=== PATIENT | male | born 1990 | race Caucasian/White ===

== ENCOUNTER 2019-11-01 09:51 | Outpatient (RCR) | payer SELFPAY | END 2019-11-29 00:01 | LOC: WOUND 09:51 | PROVIDERS: Family Provider Family Medicine; Visit Provider Thoracic Surgery (Cardiothoracic Vascular Surgery) | DX: L97.512 Non-pressure chronic ulcer of other part of right foot with fat layer exposed (principal) | CPT/HCPCS: 11042 ==

== ENCOUNTER 2020-01-20 08:26 | Day surgery (SDC) | payer MEDICAID, SELFPAY ==
[2020-01-19 13:37] VITALS: BMI 38.3
[2020-01-20] VITALS (16 sets, daily range): BP systolic 115–151; BP diastolic 66–98; PULSE 60–98; RESP 8–18; TEMP 36.2–37.1; O2SAT 92–100
--- NOTE | 2020-01-20 | SCC_ITS ---
Procedure Done: Primary arthrodesis right Lisfranc injury with arthrodesis of first and second tarsometatarsal joints. 7 seconds of fluoroscopic guidance, for a cumulative dose of 0.11 mGy, was provided to Dr. Raymundo by the radiology department. C-arm images of the RIGHT foot were saved for the patient's permanent record. [facility]
[2020-01-20] MEDS: sodium chloride 0.9% 1,000 ML 30 ML IV (09:21)
[2020-01-20] MEDS: midazolam 1 mg/mL INJ 2 mL 2 MG IVP (09:25)
--- NOTE | 2020-01-20 09:28 | ANES.PREANE2 ---
Pre-Anesthetic Assessment Pre-Anesthetic Assessment: Height/Weight: Height 1.8 m Weight 124.738 kg Temp Pulse Resp BP Pulse Ox 98.7 F 77 18 135/92 97 01/20/20 08:55 01/20/20 08:55 01/20/20 08:55 01/20/20 08:55 01/20/20 08:55 Preop Diagnosis: Right Lisfranc dislocation Proposed Procedure: Operation Date: 01/20/20 10:00 Proposed Procedures p Right tarsometeatarsal Arthrodesis Foot 51802 76651 S93.326a S92.354A S92.334A S92.424A(Right) - JENNIFER Fofana Bijan Osteotomy(Right) - JENNIFER Fofana Gastrocnemius Recession(Right) - Wei Raymundo DPM Familial anesthetic complications: None Was Beta Jose taken within 24 hours: N/A Last intake: Intake Last Liquid Date 01/19/20 Last Liquid Time 23:30 Last Solid Date 01/19/20 Last Solid Time 19:00 Social: Social History: No alcohol and No tobacco Exam: Pre-Anes Outpt Exam: alert, oriented x 3, clear to auscultation bilaterally and regular rate & rhythm Airway: Cervical ROM: WNL MP: 2 Additional comments: large tongue, 4 chipped teeth in front, grove Pulmonary: Pulmonary: None reported CV/HEM: CV/HEM: None reported : : None reported Hepatic: Hepatic: None reported GI: GI: None reported Metabolic: Metabolic: None reported Musc/skel: Comments: R foot with scar and contracted Neuropsych: Neuropsych: None reported Comments: 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 Anesthetic Plan: ASA status: 1 Anesthesia: General and Regional (specify below) (popliteal) Meds/Allergies Current Medications: Current Medications Generic Name Dose Route Start Last Admin Trade Name Freq PRN Reason Stop Dose Admin Sodium Chloride 1,000 mls @ 30 ml s/hr 01/20/20 09:00 01/20/20 09:21 Sodium Chloride 0.9% IV 01/21/20 08:59 30 mls/hr .Q24H SYLVIE Administration PFSH Anesthesia PFSH: Social History Smoking and tobacco status: former smoker Alcohol intake: current Alcohol intake frequency: holidays/special occasions only Current occupational status: unemployed Data Anesthesia Cardiac Studies: No Data to Display
--- NOTE | 2020-01-20 10:45 | ANES.PROC ---
Anesthesia Procedures Procedure/Date: 01/20/20 Nerve Block ^: Nerve Block 1: Main Anesthesia: general anesthesia Time Out Performed: Yes Consent: requested by attending/covering physician, from patient, risks and benefits reviewed and patient agrees to proceed Nerve block location: popliteal (R) Anesthesia monitors applied: pulse oximetry, BP cuff and oxygen Nerve block position: supine Anesthetic Used: ropivicaine 0.5% (30 ml) and with decadron (2) Ultrasound used to: recognize landmarks Interscalene/Femoral BLK: 4 stimuplex 21 g needle used for position and inplane approach, visualize local anesthetic spread and no vascular puncture identified Injection: neg aspiration of heme Patient Tolerated Procedure: well Complications: none
--- NOTE | 2020-01-20 11:17 | P.HPUD_ITS ---
Surgery/Procedure H&P Update DATE OF PROCEDURE: January 20, 2020 DATE H&P PERFORMED: 12/28/19 H&P UPDATE INFORMATION: I have reviewed H&P completed within last 30 days, I have examined patient prior to procedure, No changes to prior documentation and H&P is in [facility] EMR on date indicated PREOP DIAGNOSIS: Right Lisfranc dislocation PLANNED PROCEDURE: Operation Date: 01/20/20 10:00 Proposed Procedures p Right tarsometeatarsal Arthrodesis Foot 51456 40329 S93.326a S92.354A S92.334A S92.424A(Right) - JENNIFER Fofana Bijan Osteotomy(Right) - JENNIFER Fofana Gastrocnemius Recession(Right) - Wei Raymundo DPM
--- NOTE | 2020-01-20 14:21 | SUR.PHASEI ---
1415 PATIENT TO PACU. RR EVEN AND UNLABORED. PLACED ON SIMPLE MASK AT 8L, SPO2 96%. DRESSING DRY AND INTACT TO RIGHT FOOT. CAP REFILL LESS THAN 3 SECONDS. PATIENT NOTED TO BE SLEEPING.
--- NOTE | 2020-01-20 14:22 | XR_ITS ---
WS: [id number] XR foot RT min 3V* [id number] REASON FOR EXAM: post op FINDINGS: Postop changes are noted with a plate across the fifth metatarsal postop changes are also s een with fusion of Lisfranc's joint with sheila across the joint and a screw through the first metat arsal cuneiform articulation. Sheila are seen in the soft tissue. XR/XR foot RT min 3V* [id number] IMPRESSION: Correction of Lisfranc joint with sheila and a screw There is previous plate through the proximal fifth metatarsal.
[2020-01-20] MEDS: fentaNYL 50 mcg/mL INJ 2mL IVP (14:40)
--- NOTE | 2020-01-20 15:07 | SUR.PHASEI ---
1505 PATIENT TO OPS AT THIS TIME. RR EVEN AND UNLABORED. DRESSING INTACT TO RIGHT FOOT.
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
== END 2020-01-20 17:02 | disposition home or self-care (01) ==
PROVIDERS: Family Provider Family Medicine; PCP Electrodiagnostic Medicine; Visit Provider Podiatrist Foot & Ankle Surgery
PROC: (CPT 28740; principal; 2020-01-20 10:00)
PROC: (CPT 28298; 2020-01-20 10:00)
DX: S93.324A Dislocation of tarsometatarsal joint of right foot, initial encounter (principal); S97.81XA Crushing injury of right foot, initial encounter; Z87.891 Personal history of nicotine dependence
CPT/HCPCS: 28730; 12345; 73630; 76000; 96374; C1713; C9290; J0131; J0690; J1100; J2001; J2250; J2405; J2704; J2765; J2795; J3010; J3490; J7030

== ENCOUNTER → 2020-02-03 12:47 | Outpatient (BNVA) | payer MEDICAID, SELFPAY | PROVIDERS: Family Provider Family Medicine; PCP Electrodiagnostic Medicine; Visit Provider Podiatrist Foot & Ankle Surgery | DX: Z48.89 Encounter for other specified surgical aftercare (principal); M24.674 Ankylosis, right foot | CPT/HCPCS: 73630 ==

== ENCOUNTER → 2020-02-09 14:27 | Outpatient (BNVA) | payer MEDICAID, SELFPAY | PROVIDERS: Family Provider Family Medicine; PCP Electrodiagnostic Medicine; Visit Provider Podiatrist Foot & Ankle Surgery | DX: Z48.89 Encounter for other specified surgical aftercare (principal); Q70.21 Fused toes, right foot | CPT/HCPCS: 73630 ==

== ENCOUNTER → 2020-03-01 13:28 | Outpatient (BNVA) | payer MEDICAID, SELFPAY | PROVIDERS: Family Provider Family Medicine; PCP Electrodiagnostic Medicine; Visit Provider Podiatrist Foot & Ankle Surgery | DX: Z48.89 Encounter for other specified surgical aftercare (principal); M85.871 Other specified disorders of bone density and structure, right ankle and foot; R60.9 Edema, unspecified | CPT/HCPCS: 73630 ==

== ENCOUNTER → 2020-03-29 11:16 | Outpatient (BNVA) | payer MEDICAID, SELFPAY | PROVIDERS: Family Provider Family Medicine; PCP Electrodiagnostic Medicine; Visit Provider Podiatrist Foot & Ankle Surgery | DX: Z98.890 Other specified postprocedural states (principal) | CPT/HCPCS: 73610; 73620 ==

== ENCOUNTER → 2020-05-17 14:57 | Outpatient (BNVA) | payer MEDICAID, SELFPAY | PROVIDERS: Family Provider Family Medicine; PCP Electrodiagnostic Medicine; Visit Provider Podiatrist Foot & Ankle Surgery | DX: S92.354D Nondisplaced fracture of fifth metatarsal bone, right foot, subsequent encounter for fracture with routine healing (principal); V29.40XD Motorcycle driver injured in collision with unspecified motor vehicles in traffic accident, subsequent encounter; Z98.890 Other specified postprocedural states | CPT/HCPCS: 73630 ==

== ENCOUNTER 2020-05-22 20:00 | Outpatient (CLI) | payer MEDICAID, SELFPAY | END 2020-05-22 20:01 | disposition home or self-care (01) | LOC: SLEEP 05-23 08:31 | PROVIDERS: Family Provider Family Medicine; PCP Electrodiagnostic Medicine; Visit Provider Anesthesiology Pain Medicine | DX: G47.10 Hypersomnia, unspecified (principal) | CPT/HCPCS: 95810 ==

== ENCOUNTER → 2020-07-16 14:53 | Outpatient (BNVA) | payer MEDICAID, SELFPAY | PROVIDERS: Family Provider Family Medicine; PCP Electrodiagnostic Medicine; Visit Provider Podiatrist Foot & Ankle Surgery | DX: S92.354D Nondisplaced fracture of fifth metatarsal bone, right foot, subsequent encounter for fracture with routine healing (principal); X58.XXXD Exposure to other specified factors, subsequent encounter | CPT/HCPCS: 73630 ==

== ENCOUNTER 2020-07-25 20:00 | Outpatient (CLI) | payer MEDICAID, SELFPAY | END 2020-07-25 20:01 | disposition home or self-care (01) | LOC: SLEEP 07-26 08:45 | PROVIDERS: Family Provider Family Medicine; PCP Electrodiagnostic Medicine; Visit Provider Anesthesiology Pain Medicine | DX: G47.33 Obstructive sleep apnea (adult) (pediatric) (principal) | CPT/HCPCS: 95811 ==

== ENCOUNTER → 2020-10-16 13:36 | Outpatient (BNVA) | payer MEDICAID, SELFPAY | PROVIDERS: Family Provider Family Medicine; PCP Electrodiagnostic Medicine; Visit Provider Podiatrist Foot & Ankle Surgery | DX: Z47.89 Encounter for other orthopedic aftercare (principal); S92.354D Nondisplaced fracture of fifth metatarsal bone, right foot, subsequent encounter for fracture with routine healing; S93.324D Dislocation of tarsometatarsal joint of right foot, subsequent encounter; S92.344D Nondisplaced fracture of fourth metatarsal bone, right foot, subsequent encounter for fracture with routine healing; S92.334D Nondisplaced fracture of third metatarsal bone, right foot, subsequent encounter for fracture with routine healing; S92.424D Nondisplaced fracture of distal phalanx of right great toe, subsequent encounter for fracture with routine healing; M25.371 Other instability, right ankle | CPT/HCPCS: 73630 ==

== ENCOUNTER → 2022-12-23 15:21 | Outpatient (BNVA) | payer MEDICAID, SELFPAY | PROVIDERS: Family Provider Family Medicine; PCP Electrodiagnostic Medicine; Visit Provider Podiatrist Foot & Ankle Surgery | DX: S93.324D Dislocation of tarsometatarsal joint of right foot, subsequent encounter (principal); S92.354D Nondisplaced fracture of fifth metatarsal bone, right foot, subsequent encounter for fracture with routine healing; V29.99XA Rider (driver) (passenger) of other motorcycle injured in unspecified traffic accident, initial encounter; M25.371 Other instability, right ankle; M79.2 Neuralgia and neuritis, unspecified; M77.41 Metatarsalgia, right foot; M20.41 Other hammer toe(s) (acquired), right foot | CPT/HCPCS: 73630; 99214 ==

== ENCOUNTER 2023-05-24 11:51 | Emergency (ER) | payer MEDICAID, SELFPAY ==
[2023-05-24 12:18] VITALS: BP 131/93; PULSE 93; RESP 17; TEMP 36.7; O2SAT 97
--- NOTE | 2023-05-24 12:33 | ED_ITS ---
HPI - Dental/Oral General: Chief complaint: Dental/Oral Stated complaint: Dental Pain Time Seen by Provider: 05/24/23 12:33 History of Present Illness: Mr. Bradford is a 32-year-old gentleman without significant past medical history presenting to the emergency department for concern over facial swelling and pain. He noticed symptoms approximately 5 days ago initially with mild disc omfort. Subsequently seen 05/22 at outside clinic and started on amoxicillin for suspected dental infection however despite this symptoms have continued to worsen. Notes associated fevers and chills as well as nausea and vomiting. Intensity of symptoms is moderate. Worse with range of motion and palpation. No other specific changes in health, exacerbating, or alleviating factors identified. Onset (ago): day(s) Duration: worsening Severity: moderate Exacerbating factors: chewing Associated symptoms: Reports fever(s); Denies ear or mastoid pain or tongue swelling Review of Systems General: Reports: 10 or more systems reviewed and unremarkable except in HPI and below Const: Reports: fever(s) ENMT: Denies: ear or mastoid pain All/Imm: Denies: tongue swelling PFSH ED PFSH: Medical History (Updated 06/01/23 @ 00:01 by MANJIT Konx) Abrasion of ankle Closed nondisplaced fracture of distal phalanx of right great toe Closed nondisplaced fracture of third metatarsal bone of right foot Non-pressure chronic ulcer of other part of right foot with unspecified severity Traumatic hematoma of left ankle Surgical History History of back surgery Hx of elbow surgery Family History Other Diabetes Hypertension Denies family history of CAD (coronary artery disease) Clotting disorder Dementia Hyperlipidemia Psychiatric illness Chronic kidney disease (CKD) Suicide Anesthesia complication Bleeding disorder Family history of premature coronary artery disease Lung disease Cancer Stroke Social History Smoking and tobacco status: former smoker Alcohol intake: current Alcohol intake frequency: holidays/special occasions only Substance/Drug Use: never Current occupational status: unemployed Physical Exam Const: COMMON NORMALS: alert GENERAL APPEARANCE: cooperative and well developed HENMT: COMMON NORMALS: normocephalic and atraumatic HEAD & SCALP: normocephalic and atraumatic THROAT: posterior oropharynx normal OTHER: Prominent swelling of the left lateral mandible without extension to the TMJ region. No obvious abscess head in the buccal surface. Mandibular dentition appears intact, poor dentition in the left maxillary region. Tender to palpation with warmth overall. No obvious drainable fluid collection. TM normal. No evidence of mastoiditis. No distortion of posterior pharyngeal anatomy or structures. Eye: COMMON NORMALS: conjunctivae normal CONJUNCTIVA: Yes conjunctivae normal SCLERA: sclerae normal Neck/C-Spine: COMMON NORMALS: supple GENERAL: Yes trachea midline Resp: COMMON NORMALS: normal respiratory effort EFFORT & INSPECTION: Yes able to speak in complete sentences Cardio: COMMON NORMALS: regular rate and regular rhythm RATE: regular rate RHYTHM: regular rhythm GI: COMMON NORMALS: Soft to palpation PALPATION: Yes Soft to palpation and No Tenderness to palpation present (GI) Extremity: GENERAL: Yes normal exam except as noted and No edema Neuro: COMMON NORMALS: moves all extremities SENSORIUM/ORIENTATION: Yes alert and No Orientation impaired Psych: COMMON NORMALS: mental status grossly normal and Normal thought process present THOUGHT PROCESS: Normal thought process present Course Vital Signs: Vital signs: Vital Signs Temperature 98.1 F 05/24/23 12:18 Pulse Rate 83 05/24/23 15:03 Respiratory Rate 18 05/24/23 15:03 Blood Pressure 129/94 05/24/23 15:03 Pulse Oximetry 94 05/24/23 15:03 Oxygen Delivery Me thod Room Air 05/24/23 12:18 MDM - Dental/Oral Medical Decision Making 32-year-old gentleman presenting with facial swelling in the context of diagnosed dental infection. Exam as above. Given worsening despite outpatient antibiotics further evaluation is appropriate. Labs with minimal leukocytosis though hemoconcentration is also present. Normal metabolic panel. CT with cellulitis related to dental infection. No abscess or deep spread. Patient treated with antiemetic, analgesia and improved. Antibiotic dose given with clindamycin. Plan to change outpatient antibiotic. The results of ED evaluation were discussed with the patient including prescriptions and/or symptomatic cares (if applicable) including appropriate and responsible use, followup plan, and return precautions. The patient verbalized understanding and felt safe for discharge. Medical Records I reviewed the patient's medical records. Lab Data I reviewed the patient's lab results. 05/24/23 12:52 05/24/23 12:[address] 05/24/23 12:42 IMPRESSION: Findings as stated above are consistent with osteomyelitis surrounding the roots of the bilateral lateral incisors and left anterior/posterior premolar teeth extending to the cortical surfaces with overlying soft tissue cellulitis. No discernible abscess formation is seen. Laboratory Results WBC 11.3 10^3/uL (4.0-10.0) H 05/24/23 12:52 RBC 6.28 10^6/uL (4.1-5.3) H 05/24/23 12:52 Hgb 17.1 g/dL (11.7-16.6) H 05/24/23 12:52 Hct 53.2 % (42.0-52.0) H 05/24/23 12:52 MCV 84.7 fl (80-94) 05/24/23 12:52 MCH 27.2 pg (28.0-34.0) L 05/24/23 12:52 MCHC 32.1 g/dL (30.0-36.0) 05/24/23 12:52 RDW 13.8 % (12.1-15.1) 05/24/23 12:52 Plt Count 335 10^3/cmm (130-400) 05/24/23 12:52 MPV 9.2 fL (7.4-10.4) 05/24/23 12:52 Neut % (Auto) 67.9 % 05/24/23 12:52 Lymph % (Auto) 21.7 % 05/24/23 12:52 [place] % (Auto) 9.0 % 05/24/23 12:52 Eos % (Auto) 0.4 % 05/24/23 12:52 Baso % (Auto) 0.8 % 05/24/23 12:52 Neut # (Auto) 7.68 10^3/uL (1.8-7.7) 05/24/23 12:52 Lymph # (Auto) 2.5 10^3/uL (0.8-4.8) 05/24/23 12:52 [place] # (Auto) 1.0 10^3/uL (0.2-0.9) H 05/24/23 12:52 Eos # (Auto) 0.1 10^3/uL (0.0-0.8) 05/24/23 12:52 Baso # (Auto) 0.1 10^3/uL (0.0-0.1) 05/24/23 12:52 Nucleated RBC % (auto) 0 % 05/24/23 12:52 Nucleated RBCs # 0.0 /100WBC 05/24/23 12:52 Sodium 138 mmol/L (136-145) 05/24/23 12:52 Potassium 4.4 mmol/L (3.5-5.1) 05/24/23 12:52 Chloride 102 mmol/L (98-107) 05/24/23 12:52 Carbon Dioxide 27 mmol/L (22-29) 05/24/23 12:52 Anion Gap 13.4 (5-19) 05/24/23 12:52 BUN 6 mg/dL (6-20) 05/24/23 12:52 Creatinine 0.8 mg/dL (0.7-1.2) 05/24/23 12:52 GFR Calculation 110.7 mL/min (90-130) 05/24/23 12:52 Glucose 102 mg/dL (65-115) 05/24/23 12:52 Calculated Osmolality 284 mOsm/kg (285-295) L 05/24/23 12:52 Calcium 9.2 mg/dL (8.5-10.5) 05/24/23 12:52 Discharge Plan Discharge Patient Disposition: Home Clinical Impression: Dental infection, Facial cellulitis Condition: Stable Prescriptions: New ondansetron 4 mg tablet,disintegrating 4 mg PO Q8H PRN (Reason: nausea and vomiting) Qty: 15 0RF oxycodone 5 mg tablet 5 mg PO Q4H PRN (Reason: pain) Qty: 10 0RF No Action gabapentin 800 mg tablet 800 mg PO BID (DME) PTT SUPINATOR Qty: 1 0RF Rx Instructions: As directed ([facility] See Rx Instructions .Route .MEDSUPPLY Qty: 1 0RF Rx Instructions: As directed gabapentin 600 mg tablet 600 mg PO TID Qty: 90 0RF ([facility]) spectrum afo with lateral T strap See Rx Instructions .Route .MEDSUPPLY Qty: 1 0RF Rx Instructions: As directed by [place]OO[place] ([facility]) Michael Walker Qty: 1 0RF Rx Instructions: As directed oxycodone-acetaminophen 7.5-325 mg tablet 1 tab PO TID PRN (DME) Custom Accomadative orthotic See Rx Instructions .ROUTE .MEDSUPPLY Qty: 1 0RF Rx Instructions: As directed meloxicam 15 mg tablet 15 mg PO DAILY Qty: 30 2RF Discharge Orders: Discharge ED (Routine); Ordered 05/24/23 Ordered By: Hernan Kaye Referrals: Gabriel Gan, [Primary Care Provider] - Discharge Diet: Usual diet Discharge Activity: Resume usual activity Patient Instructions: Dental Caries (Cavities), Cellulitis (ED), Opioid Safety Activity Restrictions/Additional Instructions: Thank you for visiting the emergency department. You were seen and evaluated for facial swelling. The most likely cause of your symptoms is related to facial cellulitis which is skin infection and local tissue infection secondary to dental infections. This will be treated with a new antibiotic. You may use [id number]-bgg-ynhnqgd medications such as acetaminophen and ibuprofen for pain however please do not exceed the daily recommended dosage as listed on the packaging and please keep in mind that many namebrand medications contain the same active ingredients. Please avoid these medications if previously instructed to do so by another physician due to other underlying medical condition. I will prescribe oxycodone for uncontrolled pain, use this cautiously as it is an opioid. Additionally I will prescribe antinausea medication. Please follow-up with a dentist. Return for difficulty breathing, inability to tolerate oral intake, uncontrolled symptoms, or anything else that you are concerned about and feel needs emergency department evaluation. Coding Level of Care Code ED Cane Flume Feeding Machine Operator for Susie Aguilar
--- NOTE | 2023-05-24 12:42 | CTR_ITS ---
PROCEDURE INFORMATION: Exam: CT Maxillofacial With Contrast Exam date and time: 05/24/2023 1:29 PM Age: 32 years old Clinical indication: Jaw pain and maxilla pain; Additional info: L mandibular swelling/pain, eval drainable fluid collection TECHNIQUE: Imaging protocol: Computed tomography of the face with contrast. Radiation optimization: All CT scans at this facility use at least one of these dose optimization techniques: automated exposure control; mA and/or kV adjustment per patient size (includes targeted exams where dose is matched to clinical indication); or iterative reconstruction. Contrast material: OMNI 350; Contrast volume: 80 ml; Contrast route: INTRAVENOUS (IV); REPORTING DATA: Count of CT and Cardiac NM exams in prior 12 months: This patient has received 0 known CTs and 0 known cardiac nuclear medicine studies in the 12 months prior to the current study. COMPARISON: No relevant prior studies available. RADIATION DOSE METRICS: Total DLP (mGy-cm): 710.08 FINDINGS: Orbital cavities: Orbits are normal. Globes are unremarkable. Bones/joints: See Dental finding. Paranasal sinuses: See Dental finding. Soft tissues: See Dental finding. Dental: The roots of the 2 posterior-most bilateral maxillary molars may extend into the maxillary sinuses. Lucencies surround the roots of the bilateral lateral incisors and left anterior and posterior pre molars extending to the cortical surfaces consistent with infection/osteomyelitis. There is overlying soft tissue cellulitis along the left maxilla without a discrete abscess formation seen. Extensive dental caries. CT/CT facial bones w con [id number] IMPRESSION: Findings as stated above are consistent with osteomyelitis surrounding the roots of the bilateral lateral incisors and left anterior/posterior premolar teeth extending to the cortical surfaces with overlying soft tissue cellulitis. No discernible abscess formation is seen.
[2023-05-24] MEDS: ondansetron 2 mg/ML SDV 2 mL 4 MG IVP (12:51)
[2023-05-24] MEDS: morphine 4 mg/mL SDV 1 mL IVP ×2 (12:51→14:39)
[2023-05-24 13:00] VITALS: BP 130/92; PULSE 79; O2SAT 93
[2023-05-24 13:09] LABS: Basophils # 0.1 10^3/uL (0.0-0.1); Basophils % 0.8 %; Eosinophils # 0.1 10^3/uL (0.0-0.8); Eosinophils % 0.4 %; Hematocrit 53.2 % (42.0-52.0); Hemoglobin 17.1 g/dL (11.7-16.6); Lymphocytes # 2.5 10^3/uL (0.8-4.8); Lymphocytes % 21.7 %; Mean Corpuscular HGB Conc 32.1 g/dL (30.0-36.0); Mean Corpuscular Hemoglobin 27.2 pg (28.0-34.0); Mean Corpuscular Volume 84.7 fl (80-94); Mean Platelet Volume 9.2 fL (7.4-10.4); Neutrophils # 7.68 10^3/uL (1.8-7.7); Neutrophils % 67.9 %; Nucleated Red Blood Cells % 0 %; Platelet Count 335 10^3/cmm (130-400); Red Blood Count 6.28 10^6/uL (4.1-5.3); Red Cell Distribution Width 13.8 % (12.1-15.1); White Blood Count 11.3 10^3/uL (4.0-10.0)
[2023-05-24 13:31] LABS: Anion Gap 13.4 (5-19); Blood Urea Nitrogen 6 mg/dL (6-20); Calcium 9.2 mg/dL (8.5-10.5); Carbon Dioxide 27 mmol/L (22-29); Chloride 102 mmol/L (98-107); Glomerular Filtration Rate 110.7 mL/min (90-130); Glucose 102 mg/dL (65-115); Osmolality Calculated 284 mOsm/kg (285-295); Potassium 4.4 mmol/L (3.5-5.1); Sodium 138 mmol/L (136-145)
[2023-05-24] MEDS: iohexol 350 mg/mL 500 mL Btl (per mL) IV (13:35)
[2023-05-24 14:22] VITALS: BP 131/91; PULSE 65; O2SAT 94
[2023-05-24] MEDS: clindamycin 600 MG/50 ML PREMIX 100 MG IV (14:25)
[2023-05-24] MEDS: ketorolac 30 mg/mL INJ 15 MG IVP (14:42)
[2023-05-24 15:03] VITALS: BP 129/94; PULSE 83; RESP 18; O2SAT 94
== END 2023-05-24 15:04 | disposition home or self-care (01) ==
PROVIDERS: Emergency Provider Emergency Medicine; PCP Electrodiagnostic Medicine
DX: K04.7 Periapical abscess without sinus (principal); L03.211 Cellulitis of face; Z87.891 Personal history of nicotine dependence
CPT/HCPCS: 36415; 70487; 80048; 85025; 87040; 96365; 96375; 96376; 99285; J1885; J2270; J2405; J3490; Q9967

== ENCOUNTER → 2023-12-02 08:05 | Outpatient (BNVA) | payer MEDICAID, SELFPAY | PROVIDERS: PCP Electrodiagnostic Medicine; Visit Provider Podiatrist Foot & Ankle Surgery | DX: S92.354D Nondisplaced fracture of fifth metatarsal bone, right foot, subsequent encounter for fracture with routine healing; V29.40 Motorcycle driver injured in collision with unspecified motor vehicles in traffic accident; M20.41 Other hammer toe(s) (acquired), right foot; M77.41 Metatarsalgia, right foot; M79.2 Neuralgia and neuritis, unspecified; M25.371 Other instability, right ankle; M21.621 Bunionette of right foot | CPT/HCPCS: 73630; 99214 ==

== ENCOUNTER 2024-01-01 07:14 | Day surgery (SDC) | payer MEDICAID, SELFPAY ==
[2024-01-01] VITALS (8 sets, daily range): BP systolic 93–135; BP diastolic 46–83; PULSE 67–83; RESP 12–18; TEMP 36.3–36.6; O2SAT 95–98; BMI 35.5
--- NOTE | 2024-01-01 | XR_ITS ---
WS: [id number] XR foot RT 2V [id number] REASON FOR EXAM: NORMA PICS FINDINGS: Osteotomy of the distal fifth metatarsal and proximal phalanx with long longitudinal pinning of the f ifth toe from the distal phalanx to the metatarsal. IMPRESSION: Osteotomy and longitudinal pin fixation of the fifth toe.
[2024-01-01] MEDS: sodium chloride 0.9% 1,000 ML 30 ML IV (07:38)
--- NOTE | 2024-01-01 08:06 | P.HPUD_ITS ---
Surgery/Procedure H&P Update DATE OF PROCEDURE: January 01, 2024 DATE H&P PERFORMED: 01/09/24 H&P UPDATE INFORMATION: I have reviewed H&P completed within last 30 days, I have examined patient prior to procedure, No changes to prior documentation and H&P is in [facility] on date indicated PREOP DIAGNOSIS: Right tailor's bunionette and fifth hammertoe PLANNED PROCEDURE: Operation Date: 01/01/24 09:40 Proposed Procedures p Hammertoe Correction(right 5th)(Right) - Wei Raymundo DPM s Resection Metatarsal Head(right 5th)(Right) - Wei Raymundo DPM
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
--- NOTE | 2024-01-01 08:21 | ANES.PREANE2 ---
Pre-Anesthetic Assessment Height/Weight: Height 1.8 m Weight 104.326 kg Temp Pulse Resp BP Pulse Ox O2 Del Method 98 F 83 16 135/83 98 Room Air 01/01/24 07:25 01/01/24 07:25 01/01/24 07:25 01/01/24 07:25 01/01/24 07:25 01/01/24 07:30 Preop Diagnosis: Right tailor's bunionette and fifth hammertoe Operation Date: 01/01/24 09:40 Proposed Procedures p Hammertoe Correction(right 5th)(Right) - Wei Raymundo DPM s Resection Metatarsal Head(right 5th)(Right) - Wei Raymundo DPM Familial anesthetic complications: None Was Beta Jose taken within 24 hours: N/A Was Clonidine taken within 24 hours: N/A Last intake: Intake Last Liquid Date 01/01/24 Last Liquid Time 23:00 Last Solid Date 01/01/24 Last Solid Time 23:00 Social No alcohol and No tobacco Exam alert, oriented x 3, clear to auscultation bilaterally and regular rate & rhythm Airway Mallampati: Class II Dentition: chipped Comments: Comments: full grove Anesthetic Plan ASA status: 1 Anesthesia: MAC Risk of > 500 ml blood loss (7ml/kg in children): No Medications/Allergies Home Medications Medication Instructions Recorded Confirmed Last Taken Type PTT SUPINATOR #1 ea 12/13/19 12/02/23 Unknown Rx [place] #1 ea 07/16/20 12/02/23 Unknown Rx Custom Accomadative orthotic #1 ea 10/17/20 12/02/23 Unknown Rx spectrum afo with lateral T strap #1 ea 04/22/21 12/02/23 Unknown Rx meloxicam 15 mg tablet 15 mg PO DAILY #30 tabs 12/23/22 01/01/24 Unknown Rx ondansetron 4 mg disintegrating 4 mg PO Q8H PRN nausea and 05/24/23 12/31/23 Unknown Rx tablet vomiting #15 tabs gabapentin 600 mg tablet 600 mg PO BID 12/02/23 01/01/24 Unknown History oxycodone-acetaminophen 10 mg-325 1 tab PO Q6H PRN pain 7 days #28 01/01/24 Unknown Rx mg tablet (Percocet) tabs Allergies Allergy/AdvReac Type Severity Reaction Status Date / Time No Known Allergies Allergy Verified 01/01/24 07:28 Current Medications Generic Name Dose Route Start Last Admin Trade Name Ashley PRN Reason Stop Dose Admin Sodium Chloride 1,000 mls @ 30 mls/hr 01/01/24 07:30 01/01/24 07:38 Sodium Chloride 0.9% IV 01/02/24 07:29 30 mls/hr .Q24H SYLVIE Administration PFSH Anesthesia Medical History (Updated 12/02/23 @ 09:20 by Wei Raymundo DPM) Metatarsalgia of right foot Non-pressure chronic ulcer of other part of right foot with unspecified severity Abrasion of ankle Closed nondisplaced fracture of third metatarsal bone of right foot Closed nondisplaced fracture of distal phalanx of right great toe Traumatic hematoma of left ankle Surgical History (Updated 01/01/24 @ 08:14 by Wei Raymundo DPM) History of back surgery Hx of elbow surgery Family History Other Diabetes Hypertension Denies family history of CAD (coronary artery disease) Clotting disorder Dementia Hyperlipidemia Psychiatric illness Chronic kidney disease (CKD) Suicide Anesthesia complication Bleeding disorder Family history of premature coronary artery disease Lung disease Cancer Stroke Social History Smoking and tobacco/nicotine status: former use of tobacco/nicotine Alcohol intake: current Alcohol intake frequency: holidays/special occasions only Substance/Drug Use: never Current occupational status: unemployed Data Anesthesia Cardiac Studies: No Data to Display
[2024-01-01] MEDS: ceFAZolin 2,000 MG in sodium chloride 0.9% (plus) 50 ML 100 MG IV (08:25)
[2024-01-01] MEDS: BUPivacaine 0.5% INJ 10 mL 20 ML INJECTION (08:51)
[2024-01-01] MEDS: BUPivacaine liposome 13.3 mg/mL SDV 10 mL 133 MG INFILTRATI (08:52)
[2024-01-01] MEDS: oxyCODONE-APAP 10-325 mg Tablet 1 TAB PO (09:42)
[2024-01-01] MEDS: ondansetron 2 mg/ML SDV 2 mL 4 MG IVP (09:43)
[2024-01-01] MEDS: diphenhydrAMINE 50 mg/mL SDV 1mL 12.5 MG IVP (09:49)
--- NOTE | 2024-01-01 15:11 | ANE.PACU2 ---
Inpatient post-anesthesia follow up: Vital signs: Temperature 97.4 F Pulse Rate 67 Respiratory Rate 18 Blood Pressure 93/55 Pulse Oximetry 98 Oxygen Delivery Me thod Room Air Oxygen Flow Rate Fraction of Inspir ed Oxygen Hydration adequate: Yes Nausea and vomiting: No Pain level: Other Mental status: Baseline Additional Comments: no apparent anesthetic complicaitons noted. Pain controlled
== END 2024-01-01 10:39 | disposition home or self-care (01) ==
PROVIDERS: PCP Electrodiagnostic Medicine; Visit Provider Podiatrist Foot & Ankle Surgery
PROC: (CPT 28285; principal; 2024-01-01 09:20)
PROC: (CPT 28140; 2024-01-01 09:20)
DX: M21.621 Bunionette of right foot (principal); M20.41 Other hammer toe(s) (acquired), right foot
CPT/HCPCS: 28113; 28285; 73620; 76000; C1713; C9290; J0690; J1200; J2405; J2704; J3010; J3490; J7030

== ENCOUNTER → 2024-01-14 15:59 | Outpatient (BNVA) | payer MEDICAID, SELFPAY | PROVIDERS: PCP Electrodiagnostic Medicine; Visit Provider Podiatrist Foot & Ankle Surgery | DX: Z98.890 Other specified postprocedural states (principal) | CPT/HCPCS: 73630; 99024 ==

== ENCOUNTER → 2024-01-28 15:08 | Outpatient (BNVA) | payer MEDICAID, SELFPAY | PROVIDERS: PCP Electrodiagnostic Medicine; Visit Provider Podiatrist Foot & Ankle Surgery | DX: Z98.890 Other specified postprocedural states (principal) | CPT/HCPCS: 73630; 99024 ==